=== PATIENT | male | born 1955 | race Asian ===

== ENCOUNTER 2017-05-09 07:18 | Day surgery (SDC) | payer OTHER ==
[~2017-05-09] VITALS: Ht 170.2 cm; Wt 64.4 kg
[~2017-05-09 07:18] MED LIST: ASPI-973 PO; CHOL10008 PO; GLIP5TAB3 PO; LISI10TA PO; METF1000 PO; SIMV10TA4 PO; Sodium Chloride LOK Flush 10 mL Syringe IV PRN; fentaNYL-PF 50 mCg/mL 2 mL Inj IVPUSH PRN
[2017-05-09 07:35] VITALS: BP 132/89; PULSE 84; RESP 16; O2SAT 99
[2017-05-09] MEDS: 0.9% Sodium Chloride 1,000 ML IV SCH ×3 (07:39→08:24)
[2017-05-09 08:31] VITALS: BP 123/82; PULSE 79; RESP 16; O2SAT 100
[2017-05-09 08:43] VITALS: BP 121/73; PULSE 67; RESP 14; O2SAT 99
[2017-05-09 08:51] VITALS: BP 138/91; PULSE 87; RESP 14; O2SAT 99
--- NOTE | 2017-05-09 09:29 | ENDO ---
[address] [address] ENDOSCOPY PROCEDURE PATIENT: ROBBIE PILLAI : 1955 MR#: [id number] ADMIT: 05/09/2017 JOB ID: [id number] DATE: 05/09/2017 PRIMARY PROVIDER: Linda Camp MD PROCEDURE: A colonoscopy with cold forceps polypectomies. INDICATIONS: A 61-year-old male who reports for colon cancer screening. EQUIPMENT: PCF-H180AL SEDATION: 1. Versed 2 mg. 2. Fentanyl 50 mcg. COMPLICATIONS: None identified. BOWEL PREPARATION: Very adequate. PROCEDURE INFO: After the risks and benefits were explained, written and verbal informed consent was obtained. The patient was brought into the endoscopy suite and placed into the left lateral decubitus position. Sedation was achieved using the above-stated medications with the addition of oxygen via nasal cannula. A digital rectal examination was accomplished and revealed the presence of mild internal nonbleeding nonthrombosed hemorrhoids. The scope was introduced into the rectum and advanced to the cecum as identified by the appendiceal orifice and ileocecal valve. The scope was slowly withdrawn to carefully examine the mucosa for any defects or lesions. Retroflexed views were accomplished in the rectum. The colon was decompressed. The scope removed from the patient who tolerated the procedure well. FINDINGS: In the transverse colon and rectosigmoid there were two diminutive polyps removed with cold forceps. There was possibly a third polyp in the ascending colon, which would have been quite diminutive, but we did not see it after an exhaustive search of the ascending hepatic flexure region. Retroflexed views of the rectum disclosed moderate internal hemorrhoids with hypertrophied anal papillae. ENDOSCOPIC DIAGNOSIS: 1. Colon polyps. 2. Hemorrhoids. RECOMMENDATIONS: 1. Await histopathology. 2. Repeat colonoscopy in three years.
--- NOTE | 2017-05-11 09:42 | PATH ---
SURGICAL PATHOLOGY Attending Physician:Joel Perez CASE STATUS: Signed Out PATIENT NAME: ROBBIE PILLAI PID: [id number] : 1955 DATE COLLECTED:05/09/2017 14:56 SPECIMEN: Colon, Polyp CLINICAL HISTORY: 1). COLON POLYPS X2 FINAL DIAGNOSIS: 1.COLON POLYPS, BIOPSY: ONE FRAGMENT OF TUBULAR ADENOMA. ONE FRAGMENT OF COLONIC MUCOSA WITH A BENIGN INTRAMUCOSAL LYMPHOID AGGREGATE. ICD10 D12.6 GROSS DESCRIPTION: The specimen is received in one formalin filled container labeled with the patient's name, sublabeled "colon polyps x2" and consists of 2 portions of tissue which aggregate to 0.3 x 0.3 x 0.2 CM. The specimen is entirely submitted in one cassette. 05/09/2017DC MICRO DESCRIPTION: See diagnosis. ICD-9 CODES: CPT CODES: 1: 49778 Electronically Signed Out Edilberto Paul MD, PhD [facility], [place] [address] Technical component performed at [facility], [address] [place] [address] [address], [address]
== END 2017-05-09 23:59 | disposition home or self-care (01) ==
LOC: END 07:18
PROVIDERS: ATTEND Internal Medicine Gastroenterology
DX: Z12.11 Encounter for screening for malignant neoplasm of colon (principal); D12.3 Benign neoplasm of transverse colon; D12.5 Benign neoplasm of sigmoid colon; K64.9 Unspecified hemorrhoids; I10 Essential (primary) hypertension; E11.9 Type 2 diabetes mellitus without complications; F17.210 Nicotine dependence, cigarettes, uncomplicated; Z79.84 Long term (current) use of oral hypoglycemic drugs
CPT/HCPCS: 45380; 99153; G0500; J2250; J3010; J7030